=== PATIENT | male | born 1985 | race Asian ===

== ENCOUNTER 2024-05-05 17:33 | Emergency (ER) | payer OTHER ==
[~2024-05-05] VITALS: Ht 177.8 cm; Wt 77.0 kg
[2024-05-05 17:41] VITALS: O2SAT 100
[2024-05-05] MEDS: TETANUS, DIPHTHERIA, PERTUSSIS VAC/PF 0.5ML (>10YR OLD) IM ONE (18:00)
[2024-05-05] MEDS: LIDOCAINE HCL/EPINEPHRINE 1%-EPI 1:100,000 20 ML VIAL INFIL ONE (18:06)
[2024-05-05] MEDS: BACITRACIN ZINC OINT UDPKT TOP ONE (18:07)
[2024-05-05] MEDS: IBUPROFEN 600MG TABLET PO ONE (18:07)
[2024-05-05 18:37] VITALS: BP 122/78; PULSE 69; RESP 17; TEMP 98.8
== END 2024-05-05 18:37 | disposition home or self-care (01) ==
LOC: ER 17:33
DX: S01.01XA Laceration without foreign body of scalp, initial encounter (principal); W17.89XA Other fall from one level to another, initial encounter; Y93.89 Activity, other specified; Y92.89 Other specified places as the place of occurrence of the external cause; Y99.8 Other external cause status
CPT/HCPCS: 99283; 90715; 12001; 90471; J3490; 99282

== ENCOUNTER 2024-05-12 19:39 | Emergency (ER) | payer OTHER ==
[~2024-05-12] VITALS: Ht 177.8 cm; Wt 80.0 kg
[2024-05-12 19:42] VITALS: O2SAT 99
[2024-05-12 21:35] VITALS: BP 125/60; PULSE 86; RESP 16; TEMP 98.3
== END 2024-05-12 23:04 | disposition home or self-care (01) ==
LOC: ER 19:39
DX: S01.01XD Laceration without foreign body of scalp, subsequent encounter (principal); R42 Dizziness and giddiness; X58.XXXD Exposure to other specified factors, subsequent encounter
CPT/HCPCS: 99281